=== PATIENT | female | born 1960 | race African-American/Black ===

== ENCOUNTER 2017-08-05 05:46 | Day surgery (SDC) | payer MEDICAID ==
[~2017-08-05] VITALS: Ht 162.6 cm; Wt 63.5 kg
[~2017-08-05 05:46] MED LIST: ASCO100T12 PO; ERGO400C PO; FERR325T6 PO; FLUT9.9S NS; GABA-529 PO; GLIP5TAB3 PO; GLUC-113 PO; KETO15CR2 TP; MEFL250T2 PO; TAP5 PO
[2017-08-05] MEDS ORDERED: LACTATED RINGERS 1,000 ML IV SCH (07:00)
[2017-08-05] MEDS ORDERED: MORPHINE SULFATE/PF 1MG/ML 10ML AMP ONE (07:17)
[2017-08-05] MEDS ORDERED: BUPIVACAINE HCL/EPINEPHRINE/PF 0.5%/0.0005 10ML ONE (07:17)
[2017-08-05] MEDS ORDERED: PROPOFOL 200MG/20ML VIAL IV ONE ×2 (08:14→08:29)
[2017-08-05] MEDS ORDERED: HYDROMORPHONE HCL/PF 2MG/ML CPJ IV PRN (08:45)
[2017-08-05] MEDS ORDERED: ONDANSETRON HCL 4MG/2ML VIAL IV PRN (08:45)
[2017-08-05] MEDS ORDERED: FENTANYL CITRATE/PF 50MCG/ML 2ML VIAL IV PRN (08:45)
[2017-08-05] MEDS ORDERED: MEPERIDINE HCL/PF 25MG/ML CPJ IV PRN (08:45)
[2017-08-05] MEDS ORDERED: HYDROCODONE/ACETAMINOPHEN 10/325MG TABLET PO PRN (10:00)
[2017-08-05 10:04] VITALS: BP 127/77
== END 2017-08-05 11:54 | disposition home or self-care (01) ==
LOC: OR 05:46
PROVIDERS: ATTEND Orthopaedic Surgery
DX: M23.322 Other meniscus derangements, posterior horn of medial meniscus, left knee (principal); M65.9 Synovitis and tenosynovitis, unspecified; M94.262 Chondromalacia, left knee; E11.9 Type 2 diabetes mellitus without complications; G89.29 Other chronic pain; Z88.8 Allergy status to other drugs, medicaments and biological substances; Z79.899 Other long term (current) drug therapy; Z79.1 Long term (current) use of non-steroidal anti-inflammatories (NSAID)
CPT/HCPCS: 29876; 29881; 82962; 88304; 88311; 93005; 97116; 97162; J0171; J2175; J3010; J7120; L1830; J2274; J2704

== ENCOUNTER 2017-08-27 12:21 | Emergency (ER) | payer MEDICAID ==
[~2017-08-27] VITALS: Ht 160 cm; Wt 65.0 kg
[~2017-08-27 12:21] MED LIST changes: -ASCO100T12 PO; -GABA-529 PO; -GLUC-113 PO; -MEFL250T2 PO
[2017-08-27 19:30] VITALS: BP 125/71
== END 2017-08-27 19:32 | disposition home or self-care (01) ==
LOC: ER 12:21
DX: S86.912A Strain of unspecified muscle(s) and tendon(s) at lower leg level, left leg, initial encounter (principal); M71.22 Synovial cyst of popliteal space [Baker], left knee; Z98.890 Other specified postprocedural states; X58.XXXA Exposure to other specified factors, initial encounter; Y93.89 Activity, other specified; Y92.018 Other place in single-family (private) house as the place of occurrence of the external cause
CPT/HCPCS: 93970; 99284